=== PATIENT | male | born 2000 | race Caucasian/White ===

== ENCOUNTER 2022-06-23 08:43 | Emergency (ER) | payer SELFPAY ==
[~2022-06-23] VITALS: Ht 175.3 cm; Wt 73.0 kg
[2022-06-23 09:15] LABS: BASOPHILS % 0.6 % (0.0-2.0); EOSINOPHILS % 2.2 % (0.0-5.0); HEMATOCRIT. 42.1 % (42.0-52.0); HEMOGLOBIN. 14.8 g/dL (14.0-18.0); MEAN CORPUSCULAR HEMOGLOBIN 29.6 pg (28.0-32.0); MEAN CORPUSCULAR VOLUME 84.2 fL (80.0-94.0); MEAN PLATELET VOLUME 8.5 fl (7.4-10.4); NEUTROPHILS % 58.2 % (40.0-76.0); PLATELET 276 x1000/uL (130-400); RED CELL DISTRIBUTION WIDTH 13.5 % (11.6-14.6)
[2022-06-23 09:22] LABS: CHLORIDE 108 mEq/L (98-107)
[2022-06-23 11:47] VITALS: BP 117/72
== END 2022-06-23 11:50 | disposition home or self-care (01) ==
LOC: ER 08:43
DX: R55 Syncope and collapse (principal); R56.9 Unspecified convulsions
CPT/HCPCS: 36415; 80053; 85025; 93005; 99284

== ENCOUNTER 2023-03-31 15:26 | Emergency (ER) | payer OTHER ==
[~2023-03-31] VITALS: Ht 170.2 cm; Wt 80.0 kg
[2023-03-31 15:33] VITALS: TEMP 98.7; O2SAT 98
[2023-03-31] MEDS ORDERED: LEVETIRACETAM 500MG PREMIX 100 ML IV ONE ×2 (16:45)
[2023-03-31] MEDS ORDERED: KEPP500 MT (20:01)
[2023-03-31 20:41] VITALS: BP 105/78; PULSE 90; RESP 14
== END 2023-03-31 20:47 | disposition home or self-care (01) ==
LOC: ER 15:26
DX: R56.9 Unspecified convulsions (principal)
CPT/HCPCS: 71045; 70450; 93005; 96365; 99285; J1953; Z7610